=== PATIENT | female | born 1965 | race Hispanic/Latino ===

== ENCOUNTER 2022-02-16 12:16 | Outpatient (CLI) | payer OTHER ==
[~2022-02-16 12:16] MED LIST: Magnevist 469MG/ML 20 ML VIAL ONE
== END 2022-02-16 12:17 | disposition home or self-care (01) ==
LOC: CSHMRI 12:16
PROVIDERS: ATTEND Internal Medicine
DX: R51.9 Headache, unspecified (principal)
CPT/HCPCS: 70553; A9579

== ENCOUNTER 2022-07-12 08:55 | Outpatient (CLI) | payer OTHER | END 2022-07-12 08:56 | disposition home or self-care (01) | LOC: CSHMRI 08:55 | PROVIDERS: ATTEND Psychiatry & Neurology Neurology | DX: G45.9 Transient cerebral ischemic attack, unspecified (principal) | CPT/HCPCS: 70544; 70549 ==